=== PATIENT | male | born 1950 | race African-American/Black ===

== ENCOUNTER 2021-04-27 09:46 | Observation (INO) | payer MEDICARE ==
[~2021-04-27] VITALS: Ht 177.8 cm; Wt 86.1 kg
[~2021-04-27 09:46] MED LIST: AMLODIPINE10 MG PO; ASPIRIN LOW81 M1 PO; CIALIS5 MG PO; COLCRYS0.6 MG PO; FLONASE NASAL50 MCG; FLUTICASONE50 MCG; HYDROCHLOROT50 MG PO; MEDDOSEPAK PO; MEVACOR20 MG PO; POTASSIUM CHLO10 MEQ PO; PROBENECID500 MG PO
--- NOTE | 2021-04-27 10:09 | NUR ---
PATIENT ESCORTED BACK TO ROOM, EKG PERFORMED, MD AT BEDSIDE, CONNECTED TO MONITOR. IV INSERTED. ALERT AND ORIENTED AND IN NAD.
[2021-04-27 10:11] LABS: HEMATOCRIT 45.9 % (39.0-50.0); HEMOGLOBIN 14.9 g/dl (14.0-18.0); MEAN CORPUSCULAR HGB 28.9 pG CALC (26.0-32.0); MEAN CORPUSCULAR HGB CONC 32.5 g/dL CAL (32.0-36.0); NEUT# 2.62 thou/uL (1.82-7.42); RED BLOOD COUNT 5.16 mill/uL (4.70-6.10); RED CELL DISTRI WIDTH 15.7 % (11.5-15.5)
[2021-04-27 10:30] LABS: ALBUMIN 4.2 g/dL (3.2-5.0); ALKALINE PHOSPHATASE 56 u/l (38-126); ANION GAP 10 (6-22 (CALC)); BILIRUBIN, TOTAL 0.7 mg/dL (0.0-1.4); BUN 9 mg/dL (8-23); BUN/CREATININE RATIO 11 (12-20 (CALC)); CARBON DIOXIDE 28 mmol/l (22-30); CHLORIDE 106 mmol/l (95-108); CREATININE 0.8 mg/dL (0.7-1.3); GFR > 60 ML/MIN (>=60 (CALC)); GFR FOR AFR.AMER. > 60 ML/MIN (>=60 (CALC)); POTASSIUM 3.7 mmol/l (3.5-5.1); SGOT/AST 37 u/l (19-48); SODIUM 139 mmol/l (137-146); TOTAL PROTEIN 7.6 g/dL (6.3-8.2)
--- NOTE | 2021-04-27 11:00 | NUR ---
Reassessment of patient completed. No distress noted.
--- NOTE | 2021-04-27 12:00 | NUR ---
Reassessment of patient completed. No distress noted.
[2021-04-27] MEDS ORDERED: LOSARTAN POTASS50 MG PO (12:58)
--- NOTE | 2021-04-27 12:59 | NUR ---
Reassessment of patient completed. No distress noted.
[2021-04-27] MEDS ORDERED: ALLOPURINOL100 MG PO (13:03)
[2021-04-27] MEDS ORDERED: OMEPRAZOLE10 MG PO (13:03)
--- NOTE | 2021-04-27 14:39 | NUR ---
Reassessment of patient completed. No distress noted.
--- NOTE | 2021-04-27 15:17 | NUR ---
PATIENT CAME FROM ER VIA WHEELCHAIR BY NURSE.
--- NOTE | 2021-04-27 15:29 | NUR ---
ASSESSMENT DONE. PATIENT IS ALERT AND ORIENT X3 BUT A POOR HISTORIAN. PATIENT DENIES PAIN AT THIS TIME. TELE IN PLACE #[id number]. RESPS EVEN AND UNLABORED. PATIENT DENIES NEEDS. SAFETY PRECAUTIONS REINFORCED AND CALL LIGHT IN REACH.
[2021-04-27 15:53] VITALS: BP 200/62
--- NOTE | 2021-04-27 16:31 | NUR ---
[address] TODD FOR BP 200/62. 1631 HE DID NOT ANSWER MESSAGE. CALLED DR. TODD ABOUT PATIENT BP 200/62 NO NEW ORDERS AT THIS TIME.
[2021-04-27 16:48] VITALS: BP 169/70
--- NOTE | 2021-04-27 19:38 | NUR ---
PATIENT RESTING IN BED AT THIS TIME-AWAKE ALERT AND ORIENTEDX3. PATIENT WITH TELE MONITOR IN PLACE. IV SITE TO LAC INTACT. PATIENT STATES THAT HE WAS HAVING SOME LEFT SIDE CHEST PAIN- WENT TO THE BR AND PASSED GAS AND THE PAIN WENT AWAY. 1800 TROP NEG. LUNGS ARE DIMINISHED BUT CLEAR. ABD IS SOFT WITH ACTIVE BS. NO PERIPHERAL EDEMA NOTED. PULSES ARE PALPABLE. SAFETY PRECAUTIONS REINFORCED. CALL LIGHT IN REACH. WILL CONT TO MONITOR.
[2021-04-27 20:09] VITALS: BP 167/74
[2021-04-28 00:35] VITALS: BP 177/90
--- NOTE | 2021-04-28 01:16 | NUR ---
PATIENT RESTING IN BED WITH EYES CLOSED. RESPS ARE EVEN AND UNLABORED. MN TROP IS NEG. TELE MONITOR IN PLACE. CALL LIGHT IN REACH. WILL CONT TO MONITOR.
--- NOTE | 2021-04-28 04:11 | NUR ---
PATIENT RESTING IN BED AT THIS TIME-APPEARS SLEEPING WITH EYES CLOSED. RESPS ARE EVEN AND UNLABORED. TELE MONITOR IN PLACE. SALINE LOCK TO LAC INTACT. CALL LIGHT IN REACH. WILL CONT TO MONITOR.
[2021-04-28 04:41] VITALS: BP 155/71
[2021-04-28 06:09] LABS: HEMATOCRIT 45.2 % (39.0-50.0); HEMOGLOBIN 15.1 g/dl (14.0-18.0); MEAN CELL VOLUME 87.6 fL CALC (80.0-100.0); MEAN CORPUSCULAR HGB 29.3 pG CALC (26.0-32.0); MEAN CORPUSCULAR HGB CONC 33.4 g/dL CAL (32.0-36.0); NEUT# 2.93 thou/uL (1.82-7.42); RED BLOOD COUNT 5.16 mill/uL (4.70-6.10); RED CELL DISTRI WIDTH 15.5 % (11.5-15.5)
[2021-04-28 06:23] LABS: ALBUMIN 3.8 g/dL (3.2-5.0); ALKALINE PHOSPHATASE 52 u/l (38-126); ANION GAP 9 (6-22 (CALC)); BILIRUBIN, TOTAL 0.7 mg/dL (0.0-1.4); BUN 7 mg/dL (8-23); BUN/CREATININE RATIO 9 (12-20 (CALC)); CARBON DIOXIDE 28 mmol/l (22-30); CHLORIDE 106 mmol/l (95-108); CREATININE 0.7 mg/dL (0.7-1.3); GFR > 60 ML/MIN (>=60 (CALC)); GFR FOR AFR.AMER. > 60 ML/MIN (>=60 (CALC)); POTASSIUM 3.7 mmol/l (3.5-5.1); SGOT/AST 37 u/l (19-48); SODIUM 139 mmol/l (137-146); TOTAL PROTEIN 6.9 g/dL (6.3-8.2)
[2021-04-28 07:05] VITALS: BP 162/79
--- NOTE | 2021-04-28 07:09 | NUR ---
ASSESSMENT DONE. PATIENT IS ALERT AND ORIENT X3. PATIENT DENIES PAIN AT THIS TIME. PATIENT STATED SOMETIMES HE HAS GAS PAIN. TELE IN PLACE. RESPS EVEN AND UNLABORED. PO FLUIDS PROVIDED. PATIENT DENIES ANY OTHER NEEDS AT THIS TIME. CALL LIGHT IN REACH.
[2021-04-28 10:42] VITALS: BP 149/75
--- NOTE | 2021-04-28 12:03 | NUR ---
PATIENT IS SITTING IN THE SIDE OF THE BED EATING HIS LUNCH WITH NO DISTRESS NOTED. PATIENT STATED HE IS GOOD AND DENIES NEEDS. CALL LIGHT IN REACH.
[2021-04-28] MEDS ORDERED: PROTONIX40 M2 PO (13:20)
--- NOTE | 2021-04-28 14:50 | NUR ---
Discharge instructions given. Patient verbalizes understanding of same. Discharged in stable condition via Wheelchair to Home with spouse. All belongings sent with pt.
== END 2021-04-28 14:50 | disposition home or self-care (01) ==
LOC: ED 09:46 → ED-I 11:32 → ED 11:45 → ED-I 11:46 → MS2 11:46
PROVIDERS: Family Medicine; ADMIT Internal Medicine; ATTEND Internal Medicine
DX: R07.9 Chest pain, unspecified (principal); I10 Essential (primary) hypertension; E78.5 Hyperlipidemia, unspecified; K21.9 Gastro-esophageal reflux disease without esophagitis; M10.9 Gout, unspecified; Z20.822 Contact with and (suspected) exposure to COVID-19

== ENCOUNTER 2023-04-02 09:43 | Emergency (ER) | payer MEDICARE ==
[2023-04-02] VITALS (10 sets, daily range): BP systolic 162–199; BP diastolic 83–100
[~2023-04-02] VITALS: Ht 177.8 cm; Wt 95.0 kg
[~2023-04-02 09:43] MED LIST changes: +ALLOPURINOL100 MG PO; +LOSARTAN POTASS50 MG PO; +OMEPRAZOLE10 MG PO; +PROTONIX40 M2 PO
[2023-04-02] MEDS ORDERED: NAPROXEN500 MG PO (11:32)
== END 2023-04-02 11:51 | disposition home or self-care (01) ==
LOC: ED 09:43
PROC: 0RSJXZZ Reposition Right Shoulder Joint, External Approach (ICD-10-PCS; principal; 2023-04-02)
DX: S43.014A Anterior dislocation of right humerus, initial encounter (principal); I10 Essential (primary) hypertension; W18.30XA Fall on same level, unspecified, initial encounter; Z72.0 Tobacco use